=== PATIENT | male | born 1955 | race Hispanic/Latino ===

== ENCOUNTER → 2024-05-04 | Outpatient (CLI) | payer OTHER ==
--- NOTE | 2024-05-04 16:06 | HMCIMG ---
US VEIN MAPPING BILATERAL HISTORY: No additional history given. COMPARISON: None TECHNIQUE: Ultrasound upper extremity venous mapping study was performed for hemodialysis access. FINDINGS: Right cephalic vein High upper arm: Collapse Mid upper arm collapse Low upper arm: 3 x 2 millimeter High forearm: 4 x 4 millimeter Mid forearm: 2 x 4 millimeter Low forearm: 3 x 2 millimeter Right basilic vein Upper arm: 18 x 4 millimeter Mid arm: 13 x 5 millimeter Antecubital fossa: 7 x 9 millimeter Left cephalic vein High upper arm: 3 x 3 millimeter Mid upper arm: 4 x 3 millimeter Low upper arm: 2 x 3 millimeter High forearm: 4 x 4 millimeter Mid forearm: 3 x 4 millimeter Low forearm: 2 x 2 millimeter Left basilic vein Upper arm: 13 x 5 millimeter Mid arm: 13 x 5 millimeter Antecubital fossa: 7 x 5 millimeter IMPRESSION: 1. Ultrasound upper extremity venous mapping study as described above.
== END | disposition home or self-care (01) ==
LOC: RAH 14:30
PROVIDERS: ATTEND Student in an Organized Health Care Education/Training Program
DX: N18.6 End stage renal disease (principal)
CPT/HCPCS: 93970

== ENCOUNTER → 2024-06-22 | Outpatient (CLI) | payer OTHER ==
[~2024-06-22] VITALS: Ht 185.4 cm; Wt 105.8 kg
[~2024-06-22] MED LIST: AMLO-258 PO; ASPI-1443 PO; ATOR40TA71 PO; CLOP75TA32 PO; EPLE25TA24 PO; FOLI1 PO; FURO40TA5 PO; HYDR25TA PO; ISOS30TA92 PO; LOSA50TA64 PO; METO-408 PO; MVI PO; PARO-37 PO; TAMS-1 PO; VERQUVO PO
[2024-06-22 13:30] LABS: BASOPHILS # (AUTO) 0.03 K/uL (0.00-0.20); BASOPHILS % (AUTO) 0.6 % (0.0-5.0); EOSINOPHILS # (AUTO) 0.12 K/uL (0.00-0.70); EOSINOPHILS % (AUTO) 2.5 % (0.0-8.0); HEMATOCRIT 37.3 % (42-54); IMMATURE GRANULOCYTE ABSOLUTE 0.03 K/uL (0-1); LYMPHOCYTES # (AUTO) 0.5 K/uL (1.0-4.8); LYMPHOCYTES % (AUTO) 9.5 % (21.0-51.0); MEAN CORPUSCULAR HEMOGLOBIN 27.7 pg (27.0-33.0); MEAN CORPUSCULAR HGB CONC 31.6 g/dL (32.0-36.0); MEAN CORPUSCULAR VOLUME 87.6 fL (79-99); MONOCYTES # (AUTO) 0.4 K/uL (0.1-1.0); MONOCYTES % (AUTO) 7.6 % (3.0-13.0); NEUTROPHILS # (AUTO) 3.8 K/uL (1.8-7.7); NEUTROPHILS % (AUTO) 79.2 % (40.0-77.0); PLATELET COUNT (AUTO) 114 K/uL (130-400); RED BLOOD CELL COUNT(AUTO) 4.26 MIL/uL (4.50-6.20); WHITE BLOOD COUNT (AUTO) 4.8 K/uL (4.8-10.8)
[2024-06-22 13:34] LABS: INR 0.99 (0.85-1.15); PROTHROMBIN TIME 11.1 SEC (9.6-11.6)
[2024-06-22 13:35] LABS: PARTIAL THROMBOPLASTIN TIME 29.4 SEC (26.3-35.5)
[2024-06-22 13:36] LABS: ALBUMIN 2.3 g/dL (3.5-5.0); BILIRUBIN,TOTAL 0.5 mg/dL (0.2-1.0); CREATININE 3.5 mg/dL (0.5-1.3); POTASSIUM 4.2 mmol/L (3.5-5.1); TOTAL PROTEIN, SERUM 5.1 g/dL (6.0-8.3)
[2024-06-22 14:07] VITALS: BP 111/74; PULSE 81; RESP 18; TEMP 97.6
--- NOTE | 2024-06-22 14:56 | NUR ---
report dr gar reviewed ekg. pt will need cardiac clearance. kimber with dr boyce notified.
--- NOTE | 2024-06-22 15:20 | NUR ---
f/u pt notified of cancellation due to ekg. 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 pt also informed if any s/s of chest pain, nausea, weakness, sob, dizziness or related to cardiac not to hesitate to go to nearest er. Pt voiced understanding and denied any s/s at this time.
--- NOTE | 2024-06-23 05:10 | EKG ---
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
== END ==
LOC: EDSTATUS 12:00 → DAH 12:23
PROVIDERS: ATTEND Student in an Organized Health Care Education/Training Program
DX: Z01.818 Encounter for other preprocedural examination (principal); I12.0 Hypertensive chronic kidney disease with stage 5 chronic kidney disease or end stage renal disease; E11.22 Type 2 diabetes mellitus with diabetic chronic kidney disease; N18.5 Chronic kidney disease, stage 5; M10.9 Gout, unspecified; Z79.899 Other long term (current) drug therapy; Z98.890 Other specified postprocedural states; Z53.8 Procedure and treatment not carried out for other reasons
CPT/HCPCS: 80053; 85025; 85610; 85730; 86850; 86900; 86901; 36415; 93005; A6260

== ENCOUNTER → 2024-10-29 | Outpatient (CLI) | payer OTHER ==
[~2024-10-29] MED LIST changes: -TAMS-1 PO; +TAMS-55 PO
--- NOTE | 2024-10-29 12:17 | HMCIMG ---
Exam Type: US ART BYP GFT, UNI/LTD Clinical Information: End stage renal disease Comparison: None Findings and impression: Patent brachial artery to cephalic vein AV fistula with anastomotic velocity 760 centimeters per second which is elevated and may indicate some stenosis. There is no occlusion.
== END | disposition home or self-care (01) ==
LOC: RAH 11:08
PROVIDERS: ATTEND Student in an Organized Health Care Education/Training Program
DX: I77.0 Arteriovenous fistula, acquired (principal); M79.602 Pain in left arm; R22.32 Localized swelling, mass and lump, left upper limb; N18.6 End stage renal disease
CPT/HCPCS: 93926

== ENCOUNTER → 2025-05-14 | Outpatient (CLI) | payer OTHER ==
--- NOTE | 2025-05-14 19:08 | HMCIMG ---
STUDY: X-RAY OF THE RIGHT FOOT, 3 VIEWS HISTORY: Repeated falls. TECHNIQUE: AP, lateral, and oblique views of the right foot are submitted for interpretation. COMPARISON: None provided. FINDINGS: Bones and joints: Mild degenerative changes are present involving multiple joints of the right foot, with subtle joint space narrowing and small osteophytes. No acute fracture or dislocation is identified. Overall alignment of the midfoot and forefoot is preserved. Soft tissues: Soft tissues about the right foot are unremarkable. No significant soft tissue swelling or radiopaque foreign body is seen. IMPRESSION: * Mild degenerative changes involving multiple joints of the right foot, compatible with early osteoarthritic change and a potential contributor to chronic foot discomfort. * No acute fracture or dislocation of the right foot identified in the setting of repeated falls; if pain or instability is disproportionate to radiographic findings, further clinical assessment and consideration of advanced imaging or gait/balance evaluation may be helpful. /[place]
--- NOTE | 2025-05-14 19:08 | HMCIMG ---
STUDY: X-RAY OF THE LEFT FOOT, 3 VIEWS HISTORY: Repeated falls. TECHNIQUE: AP, oblique, and lateral views of the left foot are submitted for interpretation. COMPARISON: None provided. FINDINGS: Bones and joints: The visualized phalanges, metatarsals, tarsal bones, and calcaneus demonstrate normal alignment without acute fracture, dislocation, or destructive osseous lesion. Diffuse osteopenia is present. Mild degenerative changes are noted at multiple joints of the foot, with small osteophytes and minimal joint space narrowing, without advanced erosive or inflammatory arthropathy. Soft tissues: Soft tissue planes are preserved without significant swelling, soft tissue gas, or radiopaque foreign body. No discrete soft tissue mass or calcification is identified. IMPRESSION: * No acute osseous abnormality of the left foot. * Diffuse osteopenia and mild degenerative changes in multiple foot joints, which may contribute to chronic pain and increase susceptibility to injury with minor trauma; correlation with clinical symptoms and consideration of bone mineral density assessment and fall-risk evaluation are recommended as clinically appropriate. /[place]
--- NOTE | 2025-05-14 19:11 | HMCIMG ---
STUDY: X-RAY OF THE BILATERAL KNEES, 2 VIEWS HISTORY: Repeated falls. TECHNIQUE: AP and lateral views of both knees are submitted for interpretation. COMPARISON: None provided. FINDINGS: Bones and joints: Right knee demonstrates osteopenia with reduction in the joint spaces and periarticular osteophytes, compatible with degenerative change. Left knee demonstrates reduction in the joint spaces with periarticular osteophytes, also consistent with osteoarthritis. Mild chondrocalcinosis is present in both knees. No acute fracture or dislocation is identified, and overall alignment is maintained. Soft tissues: Mild vascular calcifications are present about both knees. No sizable joint effusion or focal soft tissue abnormality is identified. IMPRESSION: * Bilateral degenerative changes of the knees with joint space narrowing and periarticular osteophyte formation, compatible with osteoarthritis and likely contributing to symptoms and repeated falls. * Mild bilateral chondrocalcinosis, which may reflect underlying calcium pyrophosphate deposition disease in the appropriate clinical context. * Osteopenia of the right knee and mild vascular calcifications about both knees; correlation with bone mineral density assessment and a comprehensive falls-risk evaluation is recommended if not already performed. /[place]
--- NOTE | 2025-05-14 19:13 | HMCIMG ---
STUDY: X-RAY OF THE LEFT SHOULDER, 2 VIEWS HISTORY: Repeated falls. TECHNIQUE: AP views of the left shoulder in internal and external rotation are submitted for interpretation. COMPARISON: None provided. FINDINGS: Bones and joints: Mild degenerative changes of the acromioclavicular and glenohumeral joints with subtle joint space narrowing and small osteophytes. No acute fracture or dislocation is identified. Soft tissues: Periarticular soft tissues about the left shoulder are unremarkable. No radiopaque foreign body is seen. Visualized chest: Minimal left-sided pleural effusion with adjacent basilar atelectasis. Bronchovascular markings appear mildly prominent in the visualized lung. IMPRESSION: * Mild degenerative changes of the left acromioclavicular and glenohumeral joints, which may contribute to shoulder pain but without evidence of acute fracture or dislocation; correlate with clinical examination and history of repeated falls. * Minimal left pleural effusion with basilar atelectasis and mildly prominent bronchovascular markings in the visualized lung; correlate with respiratory symptoms and consider dedicated chest imaging if clinically warranted. /[place]
--- NOTE | 2025-05-14 19:36 | HMCIMG ---
STUDY: X-RAY OF THE LEFT ANKLE, 3 VIEWS HISTORY: Repeated falls. TECHNIQUE: AP, mortise, and lateral views of the left ankle are submitted for interpretation. COMPARISON: None provided. FINDINGS: Bones and joints: The distal tibia, fibula, talus, and calcaneus demonstrate normal alignment without acute fracture or dislocation. Ankle mortise is symmetric. Joint spaces are preserved without radiographic evidence of advanced degenerative or erosive arthropathy. Diffuse osteopenia is present. Soft tissues: No significant soft tissue swelling, soft tissue gas, or radiopaque foreign body is identified. No joint effusion is appreciable on this examination. IMPRESSION: * No acute osseous abnormality of the left ankle. * Diffuse osteopenia, which may reflect systemic bone demineralization and could predispose to fracture with minor trauma; correlation with clinical risk factors and consideration of bone mineral density assessment are recommended. /[place]
--- NOTE | 2025-05-14 19:41 | HMCIMG ---
STUDY: X-RAY OF THE RIGHT ANKLE, 3 VIEWS HISTORY: Repeated falls. TECHNIQUE: AP, mortise, and lateral views of the right ankle are submitted for interpretation. COMPARISON: None provided. FINDINGS: Bones and joints: The distal tibia, fibula, talus, and calcaneus demonstrate normal alignment without acute fracture or dislocation. The ankle mortise is symmetric. Joint spaces are preserved without radiographic evidence of advanced degenerative or erosive arthropathy. Diffuse osteopenia is present. Soft tissues: No significant soft tissue swelling, soft tissue gas, or radiopaque foreign body is identified. Mild vascular (arterial) calcifications are seen in the regional soft tissues. No definite joint effusion is appreciable. IMPRESSION: * No acute osseous abnormality of the right ankle. * Diffuse osteopenia and mild vascular calcification, which may reflect systemic bone demineralization and underlying atherosclerotic vascular disease; correlation with clinical risk factors and consideration of bone mineral density assessment and cardiovascular risk stratification are recommended as clinically appropriate. /[place]
== END | disposition home or self-care (01) ==
LOC: RAH 05-13 16:42
PROVIDERS: ATTEND Internal Medicine
DX: M19.012 Primary osteoarthritis, left shoulder (principal); M25.712 Osteophyte, left shoulder; M85.872 Other specified disorders of bone density and structure, left ankle and foot; M25.711 Osteophyte, right shoulder; J98.11 Atelectasis; M17.0 Bilateral primary osteoarthritis of knee; M25.762 Osteophyte, left knee; M25.761 Osteophyte, right knee; M11.262 Other chondrocalcinosis, left knee; M11.261 Other chondrocalcinosis, right knee; M19.072 Primary osteoarthritis, left ankle and foot; M19.071 Primary osteoarthritis, right ankle and foot; M25.775 Osteophyte, left foot; M25.774 Osteophyte, right foot; R29.6 Repeated falls
CPT/HCPCS: 73030; 73565; 73610; 73630; 73560